=== PATIENT | female | born 1990 | race Caucasian/White ===

== ENCOUNTER 2016-05-19 18:52 | Emergency (ER) | payer OTHER ==
[~2016-05-19] VITALS: Ht 162.6 cm; Wt 59.4 kg
[2016-05-19 19:41] LABS: Basophils # (auto) 0 uL; Basophils % (auto) 0.4 % (0.0-2.0); Eosinophils # (auto) 0.1 uL; Hematocrit 38.3 % (36.0-46.0); Lymphocytes # (auto) 1.4 uL; Lymphocytes % (auto) 20.9 % (10.0-50.0); Mean Corpuscular Hemoglobin 31.5 pg (28.0-32.0); Mean Corpuscular Volume 92.7 fL (80.0-100.0); Mean Platelet Volume 7.6 fL (7.4-10.4); Monocytes # (auto) 0.5 uL; Monocytes % (auto) 6.8 % (0.0-12.0); Neutrophils # (auto) 4.8 uL; Neutrophils % (auto) 70.9 % (37.0-80.0); Platelet Count (auto) 283 10^3/uL (140-450); Red Cell Distribution Width 12.7 % (11.6-16.0); White Blood Cell 6.7 10^3/uL (4.4-10.8)
[2016-05-19 19:58] LABS: BUN/Creatinine Ratio 18.3; Calcium 7.9 mg/dL (8.5-10.1); Potassium 4.1 mmol/L (3.5-5.1)
[2016-05-19 20:00] LABS: Bilirubin, Total 0.4 mg/dL (0.2-1.0); Total Protein 7.4 g/dL (6.4-8.2)
[2016-05-20 00:42] VITALS: BP 131/92
[2016-05-20] MEDS ORDERED: CYCLOBENZAPRINE HCL 10 MG TAB PO ONE (00:45)
[2016-05-20] MEDS ORDERED: IBUPROFEN 600 MG TAB PO ONE (00:45)
[2016-05-20] MEDS ORDERED: NEOMYCIN-BACITRACIN-POLYM UNITDOSE PKG TOP OINT TOP ONE (05:30)
== END 2016-05-20 01:23 | disposition home or self-care (01) ==
LOC: ER 19:07
DX: S00.93XA Contusion of unspecified part of head, initial encounter (principal); R51 Headache; M25.551 Pain in right hip; M25.561 Pain in right knee; M25.521 Pain in right elbow; M25.571 Pain in right ankle and joints of right foot; W17.89XA Other fall from one level to another, initial encounter; Y93.89 Activity, other specified; Y99.8 Other external cause status; Y92.89 Other specified places as the place of occurrence of the external cause
CPT/HCPCS: 36415; 70450; 80053; 85025; 99285; J7030

== ENCOUNTER 2016-07-09 15:54 | Emergency (ER) | payer OTHER ==
[~2016-07-09] VITALS: Ht 162.6 cm; Wt 58.1 kg
[2016-07-09 16:17] VITALS: BP 110/76
== END 2016-07-09 17:42 | disposition home or self-care (01) ==
LOC: ER 16:08
DX: R07.81 Pleurodynia (principal); Z76.0 Encounter for issue of repeat prescription